=== PATIENT | female | born 1935 | race Native Hawaiian/Other Pacific Islander ===

== ENCOUNTER 2017-06-20 10:03 | Outpatient (CLI) | payer OTHER | END 2017-06-20 11:05 | disposition home or self-care (01) | LOC: LABW 10:03 | DX: B35.1 Tinea unguium (principal) | CPT/HCPCS: 36415; 84450; 84460 ==

== ENCOUNTER 2017-08-04 19:17 | Emergency (ER) | payer OTHER ==
[~2017-08-04] VITALS: Ht 160 cm; Wt 62.6 kg
[2017-08-04 19:24] VITALS: TEMP 97.1
[2017-08-04 19:53] LABS: PLATELET COUNT 268 K/uL (152-353)
[2017-08-04 19:56] LABS: POTASSIUM 3.5 mmol/L (3.6-5.2)
[2017-08-04 21:15] VITALS: BP 156/93
== END 2017-08-04 21:45 | disposition short-term general hospital (02) ==
LOC: ED 19:17
PROVIDERS: Specialist
DX: I21.19 ST elevation (STEMI) myocardial infarction involving other coronary artery of inferior wall (principal); N39.0 Urinary tract infection, site not specified; R53.1 Weakness
CPT/HCPCS: 36415; 36600; 80053; 81000; 82550; 82805; 83735; 83880; 84100; 84484; 85027; 85379; 87077; 87086; 87088; 87186; 96365; 96368; 99291; J1644; J3490

== ENCOUNTER 2017-10-12 07:04 | Outpatient (CLI) | payer OTHER | END 2017-10-12 21:45 | disposition home or self-care (01) | LOC: LABW 07:04 | PROVIDERS: Nurse Practitioner Adult Health | DX: I25.10 Atherosclerotic heart disease of native coronary artery without angina pectoris (principal); E78.2 Mixed hyperlipidemia; Z79.899 Other long term (current) drug therapy; Z51.81 Encounter for therapeutic drug level monitoring | CPT/HCPCS: 36415; 80061; 80076 ==

== ENCOUNTER 2018-02-27 20:49 | Emergency (ER) | payer OTHER ==
[~2018-02-27] VITALS: Ht 160 cm; Wt 65.8 kg
[2018-02-27] MEDS ORDERED: CLOP75TA2 PO (21:02)
[2018-02-27] MEDS ORDERED: METO-837 PO (21:02)
[2018-02-27] MEDS ORDERED: ACID REDUCER10 M1 PO (21:02)
[2018-02-27] MEDS ORDERED: ASPIR-LOW81 MG PO (21:02)
[2018-02-27] MEDS ORDERED: VALSARTAN80 MG PO (21:03)
[2018-02-27 21:17] LABS: PLATELET COUNT 224 K/uL (152-353)
[2018-02-27 21:26] LABS: POTASSIUM 3.7 mmol/L (3.6-5.2)
[2018-02-28 00:37] VITALS: BP 130/59
== END 2018-02-28 00:37 | disposition short-term general hospital (02) ==
LOC: ED 20:49
PROVIDERS: Family Medicine
DX: I20.8 Other forms of angina pectoris (principal); J81.1 Chronic pulmonary edema; I44.7 Left bundle-branch block, unspecified
CPT/HCPCS: 36415; 80053; 84484; 85027; 93005; 96374; 96375; 99285; J0360; J1940; J2405

== ENCOUNTER 2018-02-28 00:49 | Outpatient (CLI) | payer OTHER ==
[~2018-02-28 00:49] MED LIST: ACID REDUCER10 M1 PO; ASPIR-LOW81 MG PO; CLOP75TA2 PO; METO-837 PO; VALSARTAN80 MG PO
== END 2018-02-28 01:17 | disposition short-term general hospital (02) ==
LOC: AMB 00:49
DX: R07.89 Other chest pain (principal)
CPT/HCPCS: A0425; A0429

== ENCOUNTER 2018-03-28 08:27 | Outpatient (CLI) | payer OTHER | END 2018-03-28 21:53 | disposition home or self-care (01) | LOC: NM 08:27 | DX: R07.89 Other chest pain (principal); I25.10 Atherosclerotic heart disease of native coronary artery without angina pectoris | CPT/HCPCS: A9500; J2785 ==

== ENCOUNTER 2019-02-02 08:20 | Outpatient (CLI) | payer OTHER | END 2019-02-02 19:06 | disposition home or self-care (01) | LOC: LABW 08:20 | PROVIDERS: Nurse Practitioner Adult Health | DX: E78.2 Mixed hyperlipidemia (principal); Z79.899 Other long term (current) drug therapy | CPT/HCPCS: 36415; 80061; 80076 ==

== ENCOUNTER 2019-05-21 09:03 | Outpatient (CLI) | payer OTHER | END 2019-05-21 19:23 | disposition home or self-care (01) | LOC: CT 09:03 | DX: D49.0 Neoplasm of unspecified behavior of digestive system (principal) | CPT/HCPCS: 36415; 82565; 84520; Q9963 ==

== ENCOUNTER 2021-06-03 10:26 | Emergency (ER) | payer OTHER ==
[~2021-06-03] VITALS: Ht 160 cm; Wt 65.8 kg
[2021-06-03 12:30] VITALS: BP 158/72; TEMP 97.8
== END 2021-06-03 12:30 | disposition home or self-care (01) ==
LOC: ED 10:26
DX: M79.18 Myalgia, other site (principal); V43.52XA Car driver injured in collision with other type car in traffic accident, initial encounter; Y93.89 Activity, other specified; Y92.89 Other specified places as the place of occurrence of the external cause; Y99.8 Other external cause status
CPT/HCPCS: 96374; 99284; J1885

== ENCOUNTER 2021-06-10 15:29 | Outpatient (CLI) | payer OTHER | END 2021-06-10 22:38 | disposition home or self-care (01) | LOC: RAD 15:29 | PROVIDERS: ATTEND Internal Medicine | DX: M54.50 Low back pain, unspecified (principal); R10.2 Pelvic and perineal pain; R07.81 Pleurodynia; M54.2 Cervicalgia ==

== ENCOUNTER 2021-07-24 13:05 | Outpatient (CLI) | payer OTHER | END 2021-07-24 19:28 | disposition home or self-care (01) | LOC: MRI 13:05 | PROVIDERS: ATTEND Orthopaedic Surgery | DX: M54.59 Other low back pain (principal); M54.16 Radiculopathy, lumbar region; M51.37 Other intervertebral disc degeneration, lumbosacral region ==

== ENCOUNTER 2021-11-03 20:42 | Emergency (ER) | payer OTHER ==
[~2021-11-03] VITALS: Ht 160 cm; Wt 65.8 kg
[2021-11-03 20:42] VITALS: TEMP 97.1
[2021-11-03 21:07] LABS: PLATELET COUNT 228 K/uL (152-353)
[2021-11-03 21:19] LABS: POTASSIUM 3.9 mmol/L (3.6-5.2)
[2021-11-03 22:00] VITALS: BP 131/77
== END 2021-11-03 22:00 | disposition short-term general hospital (02) ==
LOC: ED 20:42
PROVIDERS: Emergency Medicine
PROC: 0BH17EZ Insertion of Endotracheal Airway into Trachea, Via Natural or Artificial Opening (ICD-10-PCS; principal; 2021-11-03)
DX: I21.4 Non-ST elevation (NSTEMI) myocardial infarction (principal)
CPT/HCPCS: 36415; 43754; 51702; 80053; 83880; 84484; 85027; 85379; 85610; 85730; 92950; 93005; 96365; 96375; 99285; J1644; J3490

== ENCOUNTER 2021-11-17 11:28 | Outpatient (CLI) | payer OTHER | END 2021-11-17 19:44 | disposition home or self-care (01) | LOC: RAD 11:28 | PROVIDERS: ATTEND Internal Medicine | DX: J18.9 Pneumonia, unspecified organism (principal); N13.39 Other hydronephrosis ==

== ENCOUNTER 2021-11-23 09:22 | Outpatient (CLI) | payer OTHER | END 2021-11-23 19:11 | disposition home or self-care (01) | LOC: RESP 09:22 | PROVIDERS: ATTEND Specialist | DX: R06.09 Other forms of dyspnea (principal); I25.10 Atherosclerotic heart disease of native coronary artery without angina pectoris ==

== ENCOUNTER 2021-11-25 08:54 | Outpatient (CLI) | payer OTHER | END 2021-11-25 19:15 | disposition home or self-care (01) | LOC: US 08:54 | PROVIDERS: ATTEND Internal Medicine | DX: N13.39 Other hydronephrosis (principal) ==

== ENCOUNTER → 2022-06-08 | Outpatient (CLI) | payer OTHER | LOC: RAD 10:37 | PROVIDERS: ATTEND Internal Medicine | DX: J40 Bronchitis, not specified as acute or chronic (principal) ==

== ENCOUNTER 2022-06-15 10:29 | Outpatient (CLI) | payer OTHER ==
[2022-06-15 11:02] LABS: POTASSIUM 3.3 mmol/L (3.6-5.2)
== END 2022-06-15 19:15 | disposition home or self-care (01) ==
LOC: LABW 10:29
PROVIDERS: ATTEND Internal Medicine
DX: R05.3 Chronic cough (principal); R06.09 Other forms of dyspnea
CPT/HCPCS: 36415; 80048; 83880; 87798

== ENCOUNTER 2022-09-03 09:25 | Outpatient (CLI) | payer OTHER ==
[2022-09-03 09:57] LABS: POTASSIUM 4.4 mmol/L (3.6-5.2)
== END 2022-09-03 19:27 | disposition home or self-care (01) ==
LOC: LABW 09:25
PROVIDERS: ATTEND Nurse Practitioner Adult Health
DX: E78.2 Mixed hyperlipidemia (principal); Z79.899 Other long term (current) drug therapy; I10 Essential (primary) hypertension; R35.89 Other polyuria
CPT/HCPCS: 36415; 80048; 80061; 80076

== ENCOUNTER 2022-11-23 09:09 | Outpatient (CLI) | payer OTHER | END 2022-11-23 20:52 | disposition home or self-care (01) | LOC: LABW 09:09 | PROVIDERS: ATTEND Nurse Practitioner Adult Health | DX: I10 Essential (primary) hypertension (principal); R35.89 Other polyuria | CPT/HCPCS: 36415; 80048 ==

== ENCOUNTER 2023-03-04 09:23 | Outpatient (CLI) | payer OTHER | END 2023-03-04 19:40 | disposition home or self-care (01) | LOC: LABW 09:23 | PROVIDERS: ATTEND Nurse Practitioner Adult Health | DX: E78.2 Mixed hyperlipidemia (principal); I25.10 Atherosclerotic heart disease of native coronary artery without angina pectoris; I42.8 Other cardiomyopathies; Z79.899 Other long term (current) drug therapy | CPT/HCPCS: 36415; 80048; 80061; 80076 ==

== ENCOUNTER 2023-09-05 09:09 | Outpatient (CLI) | payer OTHER | END 2023-09-05 19:38 | disposition home or self-care (01) | LOC: LABW 09:09 | PROVIDERS: ATTEND Nurse Practitioner Adult Health | DX: E78.2 Mixed hyperlipidemia (principal); Z79.899 Other long term (current) drug therapy | CPT/HCPCS: 36415; 80076 ==

== ENCOUNTER 2023-09-26 09:14 | Outpatient (CLI) | payer OTHER | END 2023-09-26 18:51 | disposition home or self-care (01) | LOC: LABW 09:14 | PROVIDERS: ATTEND Nurse Practitioner Adult Health | DX: E78.2 Mixed hyperlipidemia (principal); Z79.899 Other long term (current) drug therapy | CPT/HCPCS: 36415; 80061 ==